=== PATIENT | female | born 1990 | race Caucasian/White ===

== ENCOUNTER 2016-09-09 18:35 | Emergency (ER) | payer SELFPAY ==
[2016-09-09 18:44] VITALS: BP 107/77; BMI 27.2
--- NOTE | 2016-09-09 19:27 | DR.GENAD ---
HPI - PCP Primary Care Physician: NFD - Complaint/Symptoms Chief Complaint Doctors Comments: Patient states that she has been having extreme pain in her left side for one year. Has been seeing a therapist for colon cleansing therapy Chief Complaint:: " I have like a full body rash and having extreme pain in my left side. Been having pain in my side for a while. 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 - Family History History of Family Medical Conditions: No - Social History Alcohol Use: None Do you use any recreational Drugs:: No - infectious screening Have you traveled outside the country in the last 6 months?: No ROS - Review of Systems Eyes: No Symptoms Reported ENTM: No Symptoms Reported Respiratoy: No Symptoms Reported Cardiovascular: No Symptoms Reported Gastrointestinal/Abdominal: No Symptoms Reported Genitourinary: No Symptoms Reported Neurological: No Symptoms Reported Musculoskeletal: No Symptoms Reported Integumentary: No Symptoms Reported Hematologic/Lymphatic: No Symptoms Reported Endocrine: No Symptoms Reported Psychiatric: No Symptoms Reported All Other Systems: Reviewed and Negative PE - Vital Signs Vitals: Temperature 98.4 F Pulse Rate 72 Respiratory Rate 18 Blood Pressure 107/77 O2 Sat by Pulse Oximetry 100 - General Limitations: No Limitations General Appearance: Alert, In No Apparent Distress - Head Head Exam: Normal Inspection, Atraumatic - Eyes Eye exam: Normal Appearance, PERRL, EOMI - ENT ENT Exam: Normal Exam External Ear Exam: Normal External Inspection TM/Canal Exam: Bilateral Normal Nose Exam: Normal Nose Exam Mouth Exam: Normal Inspection Throat Exam: Normal Inspection - Neck Neck Exam: Normal Inspection - Chest Chest Inspection: Normal Inspection - Respiratory Respiratory Exam: Normal Lung Sounds Bilat Respiratory Exam: Bilateral Clear to Auscultation - Cardiovascular Cardiovascular Exam: Regular Rate, Normal Rhythm - Abdominal Exam Abdominal Exam: Normal Inspection Abdominal Tenderness: negative: RUQ, RLQ, LUQ, LLQ, Epigastrium, Suprapubic, Diffuse, Mild, Moderate, Severe, Other - Extremities Extremities Exam: Normal Inspection, Full ROM - Back Back Exam: Normal Inspection - Neurologic Neurological Exam: Alert, Oriented X3, CN II-XII Intact - Psychiatric Psychiatric Exam: Normal Affect, Normal Mood - Skin Skin Exam: Warm, Dry, Other (areas of hypopigmentation right forearm) ROR - Labs Reviewed Result Diagrams: 09/09/16 19:50 09/09/16 19:50 Laboratory: WBC 3.5 X10^3/uL (3.6-10.0) L 09/09/16 19:50 RBC 4.70 X10^6/uL (3.5-5.4) 09/09/16 19:50 Hgb 15.0 g/dL (12.0-16.0) 09/09/16 19:50 Hct 42.1 % (36.0-47.0) 09/09/16 19:50 MCV 89.6 fL (80.0-100.0) 09/09/16 19:50 MCH 31.9 pg (27.0-34.0) 09/09/16 19:50 MCHC 35.5 g/dL (33.0-35.0) H 09/09/16 19:50 RDW 12.0 % (11.6-16.5) 09/09/16 19:50 Plt Count 192 X10^3/uL (150.0-450.0) 09/09/16 19:50 MPV 8.7 fL (7.4-11.0) 09/09/16 19:50 Neut % 33.4 % (42.0-75.0) L 09/09/16 19:50 Lymph % 47.5 % (21.0-51.0) 09/09/16 19:50 [place] % 13.6 % (0.0-13.0) H 09/09/16 19:50 Eos % 4.4 % (0.9-2.9) H 09/09/16 19:50 Baso % 1.1 % (0.2-1.0) H 09/09/16 19:50 Neut # 1.2 x10^3/uL (2.2-4.8) L 09/09/16 19:50 Lymph # 1.7 X10^3/uL (1.3-2.9) 09/09/16 19:50 [place] # 0.5 x10^3/uL (0.3-0.8) 09/09/16 19:50 Eos # 0.2 x10^3/uL (0.0-0.2) 09/09/16 19:50 Baso # 0.0 X10^3/uL (0.0-0.1) 09/09/16 19:50 Absolute Nucleated RBC 0.1 /100WBC 09/09/16 19:50 Sodium 140 mmol/L (136-145) 09/09/16 19:50 Corrected Sodium TNP 09/09/16 19:50 Potassium 4.0 mmol/L (3.5-5.1) 09/09/16 19:50 Chloride 104 mmol/L (98-107) 09/09/16 19:50 Carbon Dioxide 27.9 mmol/L (21-32) 09/09/16 19:50 BUN 18 mg/dL (7-18) 09/09/16 19:50 Creatinine 1.22 mg/dL (0.55-1.02) H 09/09/16 19:50 Est GFR (MDRD) Af Amer > 60 (>60) 09/09/16 19:50 Est GFR (MDRD) Non-Af 57 (>60) L 09/09/16 19:50 Glucose 99 mg/dL (65-99) 09/09/16 19:50 Calcium 9.4 mg/dL (8.5-10.1) 09/09/16 19:50 Corrected Calcium TNP 09/09/16 19:50 Total Bilirubin 0.40 mg/dL (0.2-1.0) 09/09/16 19:50 AST 31 Units/L (15-37) 09/09/16 19:50 ALT 38 Units/L (12-78) 09/09/16 19:50 Alkaline Phosphatase 57 Units/L (46-116) 09/09/16 19:50 C-Reactive Protein 1.80 mg/L (0-3.0) 09/09/16 19:50 Total Protein 8.4 g/dL (6.4-8.2) H 09/09/16 19:50 Albumin 4.5 g/dL (3.4-5.0) 09/09/16 19:50 Globulin 3.9 g/dL (2.5-4.5) 09/09/16 19:50 Albumin/Globulin Ratio 1.2 Ratio (1.1-2.1) 09/09/16 19:50 Amylase 36 Units/L (25-115) 09/09/16 19:50 Lipase 133 Units/L (73-393) 09/09/16 19:50 - XRAY XRAY Interpreted by: Radiologist (CT Abd/Pel: Normal ct exam of abdomen and pelvic) - Diagnosis Discharge Problem: Chronic abdominal pain - Discharge Plan Condition: Stable - Follow ups/Referrals Follow ups/Referrals: NFD,None [Primary Care Provider] - 3 days - Instructions
[2016-09-09 20:04] LABS: EOSINOPHILS # (AUTO) 0.2 x10^3/uL (0.0-0.2); EOSINOPHILS % (AUTO) 4.4 % (0.9-2.9); LYMPHOCYTES # (AUTO) 1.7 X10^3/uL (1.3-2.9); MEAN CORPUSCULAR VOLUME 89.6 fL (80.0-100.0); MEAN PLATELET VOLUME 8.7 fL (7.4-11.0); MONOCYTES # (AUTO) 0.5 x10^3/uL (0.3-0.8); NEUTROPHILS # (AUTO) 1.2 x10^3/uL (2.2-4.8)
[2016-09-09 20:13] LABS: BASOPHILS % (AUTO) 1.1 % (0.2-1.0); HEMATOCRIT 42.1 % (36.0-47.0); LYMPHOCYTES % (AUTO) 47.5 % (21.0-51.0); MEAN CORPUSCULAR HEMOGLOBIN 31.9 pg (27.0-34.0); MEAN CORPUSCULAR HGB CONC 35.5 g/dL (33.0-35.0); MONOCYTES % (AUTO) 13.6 % (0.0-13.0); NEUTROPHILS % (AUTO) 33.4 % (42.0-75.0); PLATELET COUNT 192 X10^3/uL (150.0-450.0); WHITE BLOOD COUNT 3.5 X10^3/uL (3.6-10.0)
[2016-09-09 20:17] LABS: ALANINE AMINOTRANSFERASE 38 Units/L (12-78); ALBUMIN 4.5 g/dL (3.4-5.0); ALKALINE PHOSPHATASE 57 Units/L (46-116); ASPARTATE AMINO TRANSFERASE 31 Units/L (15-37); BLOOD UREA NITROGEN 18 mg/dL (7-18); CALCIUM 9.4 mg/dL (8.5-10.1); CARBON DIOXIDE 27.9 mmol/L (21-32); CHLORIDE 104 mmol/L (98-107); CREATININE 1.22 mg/dL (0.55-1.02); GLUCOSE 99 mg/dL (65-99); LIPASE 133 Units/L (73-393); SODIUM 140 mmol/L (136-145); TOTAL PROTEIN 8.4 g/dL (6.4-8.2); eGFR BLACK RACES > 60 (>60); eGFR NON BLACK RACES 57 (>60)
[2016-09-09] MEDS ORDERED: NS 100 ML IV 100 ML IV ONE (20:51)
--- NOTE | 2016-09-09 21:22 | CT ---
EXAM: CT ABDOMEN AND PELVIS WITH CONTRAST INDICATION: Left upper quadrant pain COMPARISION: No priors available for comparison TECHNIQUE: Axial CT examination of the abdomen and pelvis was performed with intravenous contrast. The patient received intravenous contrast without adverse reaction. Coronal and sagittal reconstructions were c reated using the axial data. FINDINGS: The lung bases are clear. The liver, spleen, pancreas, adrenal glands, kidneys, and gallbladder are normal. There is no evidence of biliary ductal dilatation. The aorta and inferior vena cava are norm al in caliber. The bowel loops are nonobstructed. No abnormal mass, lymphadenopathy, or fluid collection. Urinary bladder is normal. The appendix is normal. The uterus and adnexa appear unremarkable. The regional skeleton is intact. IMPRESSION: Normal CT examination of the abdomen and pelvis. Reported By:
== END 2016-09-09 21:37 | disposition home or self-care (01) ==
LOC: ER 18:46
DX: R21 Rash and other nonspecific skin eruption (principal); R10.84 Generalized abdominal pain
CPT/HCPCS: 36415; 74177; 80053; 82150; 83690; 85025; 86140; 96365; 96374; 99283; A4222

== ENCOUNTER 2017-06-09 13:27 | Emergency (ER) | payer BC ==
[2017-06-09 13:37] VITALS: BP 119/70; BMI 25.0
--- NOTE | 2017-06-09 14:40 | ED.ABDFE ---
HPI - Time seen Time seen: 14:32 - PCP Primary Care Physician: [facility] - Complaint Chief Complaint Doctors Comments: Patient presents with complaint of LLQ pain. Denies fever, vomiting or diarrhea. Chief Complaint:: PT HAS LENGTHY HX OF ABD ISSUES AND SHE C/O HAVING A EGD/ COLON IN DEC AND C/O HAVING ABD PAINS THAT ARE SHARP AND THAT SHE FEELS LIKE HER ABD IS SWELLING.. PT C/O THIS GOING ON AND OFF FOR WEEKS. 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 - Family History History of Family Medical Conditions: No - Social History Does patient currently use any type of tobacco product: No Have you used tobacco products in the last 12 months: No Type of Tobacco Use: None Does any household member use tobacco: No Alcohol Use: None Do you use any recreational Drugs:: No Lives With: Spouse Lives Where: Home - infectious screening In the last 2 months have you had wt loss of >10#?: NO Have you had fever, night sweats or hemotysis?: No Have you traveled outside the country in the last 6 months?: No Isolation: Standard ROS - Review of Systems Eyes: No Symptoms Reported ENTM: No Symptoms Reported Respiratoy: No Symptoms Reported Cardiovascular: No Symptoms Reported Gastrointestinal/Abdominal: Abdominal Pain, Other (LUQ) Genitourinary: No Symptoms Reported Neurological: No Symptoms Reported Musculoskeletal: No Symptoms Reported Integumentary: No Symptoms Reported Hematologic/Lymphatic: No Symptoms Reported Endocrine: No Symptoms Reported Psychiatric: No Symptoms Reported All Other Systems: Reviewed and Negative PE - Vital Signs Vitals: Temperature 97.6 F Pulse Rate 99 Respiratory Rate 20 Blood Pressure 119/70 O2 Sat by Pulse Oximetry 72 - General Limitations: No Limitations General Appearance: Alert, In No Apparent Distress - Head Head Exam: Normal Inspection, Atraumatic - Eyes Eye exam: Normal Appearance, PERRL, EOMI - ENT ENT Exam: Normal Exam - Neck Neck Exam: Normal Inspection, Full ROM - Chest Chest Inspection: Normal Inspection - Respiratory Respiratory Exam: Normal Lung Sounds Bilat Respiratory Exam: Bilateral Clear to Auscultation - Cardiovascular Cardiovascular Exam: Regular Rate, Normal Rhythm - Abdominal Exam Abdominal Exam: Normal Inspection, Tenderness (LUQ) Abdominal Tenderness: LUQ - Rectal Rectal Exam: Deferred - Back Back Exam: Normal Inspection - Extremeties Extremities Exam: Normal Inspection - External Exam: Female: Deferred : Speculum Exam (Female): Deferred : Bimanual Exam (female): Deferred - Neurologic Neurological Exam: Alert, Oriented X3, CN II-XII Intact - Psychiatric Psychiatric Exam: Normal Affect, Normal Mood - Skin Skin Exam: Warm, Dry, Intact ROR - Labs Reviewed Laboratory: C-Reactive Protein < 0.50 mg/L (0-3.0) 06/09/17 14:45 Amylase 42 Units/L (25-115) 06/09/17 14:45 Lipase 152 Units/L (73-393) 06/09/17 14:45 Specimen Type Clean catch urine 06/09/17 14:48 Urine Color Yellow (YELLOW) 06/09/17 14:48 Urine Appearance Clear (CLEAR) 06/09/17 14:48 Urine pH 7.0 (5.0 - 8.0) 06/09/17 14:48 Ur Specific [place] 1.005 (1.000-1.030) 06/09/17 14:48 Urine Protein Negative (NEGATIVE) 06/09/17 14:48 Urine Glucose (UA) Negative (NEGATIVE) 06/09/17 14:48 Urine Ketones Negative (NEGATIVE) 06/09/17 14:48 Urine Occult Blood Negative (NEGATIVE) 06/09/17 14:48 Urine Nitrite Negative (NEGATIVE) 06/09/17 14:48 Urine Bilirubin Negative (NEGATIVE) 06/09/17 14:48 Urine Urobilinogen Normal (NORMAL) 06/09/17 14:48 Ur Leukocyte Esterase 1+ (NEGATIVE) 06/09/17 14:48 Urine RBC 0-2 /HPF (NONE SEEN) 06/09/17 14:48 Urine WBC 3-5 /HPF (NONE SEEN) 06/09/17 14:48 Ur Squamous Epith Cells Moderate /HPF (NEGATIVE) 06/09/17 14:48 Ur Renal Epithelial Cell Rare /HPF (NEGATIVE) 06/09/17 14:48 Amorphous Sediment 1+ /HPF (NEGATIVE) 06/09/17 14:48 Urine Bacteria 1+ /HPF (NEGATIVE) 06/09/17 14:48 Ur Culture Indicated? No/not indicated 06/09/17 14:48 - XRAY XRAY Interpreted by: Radiologist (KUB: Chest. The cardiac silhouette is unremarkable. The lungs are clear without focal mass or consolidation. There is no effusion or pneumothorax. The bony thorax is grossly unremarkable. Flat plate/upright abdomen. Demonstrates a normal bowel gas pattern without penumoperitoneum. A moderate to large amount of stool is noted within the colon. No pathological soft tissue mass or calcification can be observed.) - Diagnosis Discharge Problem: Constipation Qualifiers: Constipation type: slow transit constipation Qualified Code(s): K59.01 - Slow transit constipation - Discharge Plan Condition: Stable - Follow ups/Referrals Follow ups/Referrals: NFD,None [Primary Care Provider] - 3 days - Instructions
[2017-06-09 15:07] LABS: AMYLASE 42 Units/L (25-115); LIPASE 152 Units/L (73-393)
[2017-06-09 15:13] LABS: BILIRUBIN,URINE NEGATIVE (NEGATIVE); BLOOD/HEMOGLOBIN,URINE NEGATIVE (NEGATIVE); GLUCOSE, URINE NEGATIVE (NEGATIVE); KETONES,URINE NEGATIVE (NEGATIVE); LEUKOCYTE ESTERASE ,URINE 1+ (NEGATIVE); NITRITES,URINE NEGATIVE (NEGATIVE); PROTEIN,URINE NEGATIVE (NEGATIVE); UROBILINOGEN,URINE NORMAL (NORMAL)
[2017-06-09 15:14] LABS: APPEARANCE,URINE CLEAR (CLEAR); COLOR,URINE YELLOW (YELLOW)
[2017-06-09 15:16] LABS: C-REACTIVE PROTEIN < 0.50 mg/L (0-3.0)
--- NOTE | 2017-06-09 15:22 | RAD ---
HISTORY: Subacute on chronic abdominal pain and swelling, constipation, history of erosive gastritis Study: Acute abdominal series, three views were obtained Comparison: September 09, 2016 Findings: The trachea is midline. The cardiac silhouette is unremarkable. The lungs are clear without focal m ass or consolidation. There is no effusion or pneumothorax. The bony thorax is grossly unremarkable . Flat plate and upright evaluation of the abdomen demonstrates a normal bowel gas pattern without pneu moperitoneum. A moderate to large amount of stool is noted within the colon. No pathological soft tis joel mass or calcification can be observed. The bony structures are grossly intact. IMPRESSION: 1. No acute cardiopulmonary disease. 2. No evidence for acute abdominal pathology identified. Radiographic findings which could support a clinical diagnosis of constipation. Reported By:
[2017-06-09 15:24] LABS: BACTERIA,URINE 1+ /HPF (NEGATIVE); RBC,URINE 0-2 /HPF (NONE SEEN)
[2017-06-09 15:25] LABS: AMORPHOUS SEDIMENT,UR 1+ /HPF (NEGATIVE); RENAL EPITHELIAL CELLS,URINE RARE /HPF (NEGATIVE); SQUAMOUS EPITHELIAL CELL,UR MODERATE /HPF (NEGATIVE)
[2017-06-09] MEDS ORDERED: CITROMA PO ONE (15:46)
[2017-06-09] MEDS ORDERED: CITROMA ONE (15:50)
== END 2017-06-09 15:56 | disposition home or self-care (01) ==
LOC: ER 13:45
DX: K59.01 Slow transit constipation (principal)
CPT/HCPCS: 36415; 74022; 81001; 82150; 83690; 86140; 99282; 99283